=== PATIENT | female | born 1935 | race Caucasian/White ===

== ENCOUNTER 2017-10-03 09:49 | Emergency (ER) | payer MEDICARE ==
[~2017-10-03] VITALS: Ht 149.9 cm; Wt 54.5 kg
[~2017-10-03 09:49] MED LIST: ATOR20TA42 PO; AZIT250T74 PO; BONI150T PO; MACR100C PO; OSEL75 PO; ZOFR4TAB3 SL
[2017-10-03 09:50] VITALS: BP 160/75; PULSE 65; RESP 16; TEMP 97.8; O2SAT 93
[2017-10-03] MEDS ORDERED: ASPI81CH7 CHEW (10:16)
[2017-10-03] MEDS ORDERED: ATOR20TA15 PO (10:16)
[2017-10-03] MEDS ORDERED: ACETAMINOPHEN/HYDROcodone 325 MG/5 MG TAB PO ONE ×2 (10:45→15:30)
--- NOTE | 2017-10-03 10:53 | PD ---
HPI Chief Complaint: Fall Time Seen by Provider: 10:29 Travel History International Travel<30 days: No Contact w/Intl Traveler<30days: No Traveled to known affect area: No History of Present Illness HPI An 82 year-old woman who presents to the emergency department complaining of right hip pain after fall. States last night she was turning in the dog was in front of her and she tripped over the dog and her right hip. She is unable to bear weight on the right hip but has pain when she tries to move it too much. She slept in a recliner but this morning the pain still pretty severe so she was brought by private vehicle to the emergency department. She denies hitting her head. States she otherwise is healthy. She's been treated for vascular disease including a AAA with an open repair in the past. Not on any blood thinners. No other complaints. History Past Medical History Narrative Medical AAA status post open repair Hyperlipidemia Menopausal: Yes Social History Alcohol Use: No Tobacco Use: No (QUIT 15 YRS AGO [id number]+ YRS 1 PPD) Allergies-Medications (Allergen,Severity, Reaction): Coded Allergies: No Known Allergies (Verified Adverse Reaction, Unknown, 10/03/17) Reported Meds & Prescriptions Reported Meds & Active Scripts Active Reported Aspirin Children's (Aspirin) 81 Mg Chew 81 Mg CHEW DAILY Atorvastatin (Atorvastatin Calcium) 20 Mg Tab 20 Mg PO HS Review of Systems Except as stated in HPI: all other systems reviewed are Neg Physical Exam Narrative GENERAL: Gen. well-appearing 82 year-old woman, no acute distress. SKIN: Focused skin assessment warm/dry. HEAD: Atraumatic. Normocephalic. EYES: Pupils equal and round. No scleral icterus. No injection or drainage. ENT: No nasal bleeding or discharge. Mucous membranes pink and moist. NECK: Trachea midline. No JVD. Moves neck freely. CARDIOVASCULAR: Regular rate and rhythm. No murmur appreciated. RESPIRATORY: No accessory muscle use. Clear to auscultation. Breath sounds equal bilaterally. GASTROINTESTINAL: Abdomen soft, non-tender, nondistended. Hepatic and splenic margins not palpable. MUSCULOSKELETAL: No obvious deformities. No shortening or rotation of the hip. She can internally Rotate the hip without much discomfort when she tries to flex that she has a lot of pain especially in the anterior hip. There is no tenderness bruising deformity or other abnormality. Distally she is grossly intact. NEUROLOGICAL: Awake and alert. No obvious cranial nerve deficits. Motor grossly within normal limits. Normal speech. Data Data Last Documented VS Vital Signs Date Time Temp Pulse Resp B/P (MAP) Pulse Ox O2 Delivery O2 Flow Rate FiO2 10/03/17 09:50 97.8 65 16 160/75 (103) 93 Orders Orders Hip, Uni(Ap&Lat) W Ap Pelvis (10/03/17 ) Acetamin-Hydrocod 325-5 Mg ([place] 5-325 (10/03/17 10:45) Ct Pelvis W/O Iv Contrast (10/03/17 ) Acetamin-Hydrocod 325-5 Mg ([place] 5-325 (10/03/17 15:30) MDM Medical Decision Making Medical Screen Exam Complete: Yes Emergency Medical Condition: Yes Interpretation(s) Pelvis x-ray negative Pelvis CT: Negative Differential Diagnosis Pelvic fracture, hip fracture, contusion, dislocation, other Narrative Course Medical decision-making new para this an 82 year-old woman presents emergent from the [facility] to be due to emergency department with a fall yesterday, right hip injury, suspect pelvic ramus fracture or greater trochanter fracture. We' ll check x-ray, pain medicine, reassess. Diagnosis Primary Impression: Right hip pain Patient Instructions: General Instructions Additional Instructions: Use Lortab if needed for pain. Up with her primary doctor this week. Use caution to prevent falling. Return to the emergency department for any new or worsening symptoms. Med/Other Pt SpecificInfo: Prescription(s) given Scripts Hydrocodone-Acetaminophen (Hydrocodone-Acetaminophen) 5-325 mg Tab 1 TAB PO Q6H Y for PAIN, #15 TAB 0 Refills Prov: Gopal Burns MD 10/03/17 Disposition: 01 DISCHARGE HOME Condition: Stable Gopal Burns MD Oct 03, 2017 10:53
--- NOTE | 2017-10-03 12:05 | RADRPT ---
EXAM DATE/TIME: 10/03/2017 11:06 [facility] COMPARISON: No previous studies available for comparison. INDICATIONS : Right hip pain post fall yesterday. MEDICAL HISTORY : Hypertension. SURGICAL HISTORY : L-spine surgery 1 year ago. Hernia repair, AAA repair. ENCOUNTER: Initial ACUITY: 1 day PAIN SCORE: 6/10 LOCATION: Right groin area. FINDINGS: No acute fracture or dislocation is noted. Mild degenerative changes involving the hip joints bilate rally. Lower lumbar spine fusion hardware is noted. Right sacroiliac joint fusion hardware is also no asmita. Mesh repair of abdominal wall hernia is also noted. CONCLUSION: 1. No acute fracture or dislocation. 2. 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 Derrick Mary MD on October 03, 2017 at 12:02 Board Certified Radiologist. This report was verified electronically.
--- NOTE | 2017-10-03 15:09 | RADRPT ---
EXAM DATE/TIME: 10/03/2017 14:01 [facility] COMPARISON: No previous studies available for comparison. INDICATIONS : Fall trouble walking. ORAL CONTRAST: No oral contrast ingested. RADIATION DOSE: 15.97 CTDIvol (mGy) MEDICAL HISTORY : SURGICAL HISTORY : AAA, Hernia, Brain aneurysm. Lspine surgery and hernia. ENCOUNTER: Initial ACUITY: 2 days PAIN SCALE: 8/10 LOCATION: Pelvis TECHNIQUE: Volumetric scanning of the pelvis was performed. Using automated exposure control and adjustment of the mA and/or kV according to patient size, radiation dose was kept as low as reasonably achievable t o obtain optimal diagnostic quality images. DICOM format image data is available electronically for review and comparison. FINDINGS: There's been an anterior hernia mesh placement with some residual eventration anterior midline.\ BOWEL/MESENTERY: The visualized small and large bowel demonstrate no acute abnormality. There is no free fluid. BLADDER: There is no wall thickening or mass. RETROPERITONEUM: There is no aneurysm or lymphadenopathy. REPRODUCTIVE: Within normal limits. INGUINAL: There is no lymphadenopathy or hernia. MUSCULOSKELETAL: Within normal limits for patient age. CONCLUSION: Sigmoid diverticulosis. No evidence of diverticulitis. Previous abdominal wall hernia mesh. Gopal Yoo MD on October 03, 2017 at 15:05 Board Certified Radiologist. This report was verified electronically.
[2017-10-03] MEDS ORDERED: HYDR-3516 PO (15:20)
== END 2017-10-03 15:40 | disposition home or self-care (01) ==
LOC: NEPE 09:49
DX: M25.551 Pain in right hip (principal); E78.5 Hyperlipidemia, unspecified; Z79.82 Long term (current) use of aspirin; Z79.899 Other long term (current) drug therapy
CPT/HCPCS: 72192; 73502; 99284